=== PATIENT | female | born 1985 | race Two or more races ===

== ENCOUNTER 2022-03-19 10:16 | Emergency (ER) | payer SELFPAY | END 2022-03-19 11:30 | disposition left against medical advice (07) | LOC: JP.ED 10:16 | DX: Z53.21 Procedure and treatment not carried out due to patient leaving prior to being seen by health care provider (principal) ==

== ENCOUNTER 2022-07-07 16:01 | Emergency (ER) | payer OTHER ==
[2022-07-07] MEDS ORDERED: Ketorolac 30 MG/ML SDV IM ONE (16:26)
[2022-07-07] MEDS ORDERED: Cyclobenzaprine 10 MG Tab PO ONE (17:23)
== END 2022-07-07 18:34 | disposition home or self-care (01) ==
LOC: JP.ED 16:01
DX: M62.830 Muscle spasm of back (principal); Z79.899 Other long term (current) drug therapy; V49.50XA Passenger injured in collision with unspecified motor vehicles in traffic accident, initial encounter
CPT/HCPCS: 72070; 72100; 96372; 99284; A9270; J1885; 99285

== ENCOUNTER 2022-08-11 17:49 | Emergency (ER) | payer SELFPAY ==
[2022-08-11] MEDS ORDERED: Prochlorperazine 10 MG/2 ML SDV IVPUSH ONE (18:29)
[2022-08-11] MEDS ORDERED: diphenhydrAMINE 50 MG/ML SDV IVPUSH ONE (18:29)
[2022-08-11] MEDS ORDERED: Ketorolac 15 MG/ML SDV IVPUSH ONE (18:29)
[2022-08-11] MEDS ORDERED: Sodium Chloride 0.9% 10 ML Syringe FLUSH PRN (18:29)
[2022-08-11 19:15] LABS: ESTIMATED GFR 113 mL/min (>60)
== END 2022-08-11 20:54 | disposition home or self-care (01) ==
LOC: JP.ED 17:49
DX: G43.019 Migraine without aura, intractable, without status migrainosus (principal); L03.211 Cellulitis of face; N30.01 Acute cystitis with hematuria; B33.0 Epidemic myalgia; Z88.0 Allergy status to penicillin; Z98.890 Other specified postprocedural states
CPT/HCPCS: 36415; 70486; 80053; 81001; 85025; 86140; 96374; 96375; 99284; 99284-25; J0780; J1200; J1885; J3490

== ENCOUNTER 2022-08-19 09:07 | Emergency (ER) | payer SELFPAY | END 2022-08-19 10:19 | disposition home or self-care (01) | LOC: JP.ED 09:07 | DX: R22.0 Localized swelling, mass and lump, head (principal); Z88.0 Allergy status to penicillin | CPT/HCPCS: 99283 ==